=== PATIENT | male | born 1980 | race Caucasian/White ===

== ENCOUNTER 2019-02-09 22:16 | Emergency (ER) | payer OTHER ==
[~2019-02-09] VITALS: Ht 180.3 cm; Wt 65.8 kg
[2019-02-09 22:17] VITALS: BP 122/89
[2019-02-09] MEDS ORDERED: NORCO 5-325 TA1 EAC1 PO (22:39)
[2019-02-09] MEDS ORDERED: AUGMENTIN 875-1 EACH PO (22:39)
== END 2019-02-09 23:03 | disposition home or self-care (01) ==
LOC: ER 22:16
DX: S02.5XXA Fracture of tooth (traumatic), initial encounter for closed fracture (principal); K04.7 Periapical abscess without sinus; K08.89 Other specified disorders of teeth and supporting structures; X58.XXXA Exposure to other specified factors, initial encounter; Y93.89 Activity, other specified; Y92.89 Other specified places as the place of occurrence of the external cause; Y99.8 Other external cause status